=== PATIENT | female | born 1985 | race Caucasian/White ===

== ENCOUNTER 2020-02-22 17:33 | Emergency (ER) | payer OTHER, SELFPAY ==
[2020-02-22 17:48] VITALS: BP 111/74; PULSE 68; RESP 16; TEMP 37.5; O2SAT 100
--- NOTE | 2020-02-22 17:52 | ED.FEMALEGU ---
HPI - Female Genitourinary General Chief complaint: Urogenital-Female Stated complaint: Urogenital-female Time Seen by Provider: 02/22/20 17:52 Source: patient and RN notes reviewed History of Present Illness HPI Narrative: Patient is a 34-year-old female who presents the urgent care with complaints of a possible urinary tract infection. Patient states that she has a history of endometriosis and always has lower abdominal discomfort and bladder discomfort. However patient states that she started with some low back pain last night with intermittent nausea. Patient denies any fever. Has not used anything [id number] for her symptoms but has increased her water intake. Patient denies any hematuria, urinary urgency or frequency. Patient is supposed to be scheduling a hysterectomy with her [employer], which is been put off due to COVID. No other acute complaints. No acute distress noted. Patient read the plan of care. Related Data Home Medications Medication Instructions Recorded Confirmed levothyroxine [Euthyrox] 175 mcg PO DAILY 02/22/20 02/22/20 Allergies Allergy/AdvReac Type Severity Reaction Status Date / Time No Known Allergies Allergy Verified 02/22/20 18:03 Review of Systems Review of Systems: Narrative: CONSTITUTIONAL: Denies fever, chills, or sweats. EYES: Denies visual changes, redness, or discharge. ENT: Denies rhinorrhea, congestion, sore throat, or otalgia. CARDIOVASCULAR: Denies chest pain, palpitations, or edema. RESPIRATORY: Denies cough or dyspnea. GASTROINTESTINAL: Reports of suprapubic pressure and intermittent nausea GENITOURINARY: Denies dysuria or hematuria. SKIN: Denies rash or itching. MUSCULOSKELETAL: Reports of low back pain NEUROLOGIC: Denies headache, numbness, or weakness. All other systems reviewed are negative, except as documented in HPI. PMFSH Comments At the time of my signature, I reviewed and agree with the nursing past medical, surgical, social, and family history. There is no relevant family history pertinent to the patient complaint. Exam Narrative: Exam Narrative: GENERAL: This is a well-nourished, well-developed patient, in no apparent distress. HEAD: normocephalic, atraumatic. EYES: PERRL. Sclera clear/white. Vision is grossly intact. EARS: External ears normal NOSE: External nose normal with no obvious nasal discharge, nares without redness, no rhinorrhea. THROAT: Mucous membranes moist, posterior pharynx clear. NECK: Neck supple GASTROINTESTINAL: Abdomen soft, mild suprapubic tenderness, nondistended. SKIN: warm, intact with no suspicious lesions or rash, good texture and turgor. NEURO: awake, alert, and oriented to person, place and time. There were no obvious focal neurologic abnormalities. EXTREMITIES: No clubbing, cyanosis, or edema. BACK: Mild bilateral CVA tenderness Course Vital Signs Vital signs: Vital Signs Temperature 99.5 F 02/22/20 17:48 Pulse Rate 68 02/22/20 17:48 Respiratory Rate 16 02/22/20 17:48 Blood Pressure 111/74 02/22/20 17:48 Pulse Oximetry 100 02/22/20 17:48 Temperature 99.5 F 02/22/20 17:48 Pulse Rate 68 02/22/20 17:48 Respiratory Rate 16 02/22/20 17:48 Blood Pressure 111/74 02/22/20 17:48 Pulse Oximetry 100 02/22/20 17:48 Reviewed MDM - Female Genitourinary MDM Narrative Medical decision making narrative: Reviewed lab results with the patient. She is aware that urine analysis only shows a scant amount of possible bacteria. Therefore, we will culture the urine and forego antibiotic treatment at this time. If the culture shows a bacterial growth, we will treat appropriately. Patient is aware that the culture takes approximately 72 hours however she may call and check on the culture results. We only call for positives which needed treatment. In the meantime, educated the patient on kidney stones and advised her to go to the emergency room if the pain continues and is associated with any fever, nausea, vom
== END 2020-02-22 18:21 | disposition home or self-care (01) ==
PROVIDERS: Emergency Provider Nurse Practitioner Family
DX: R10.9 Unspecified abdominal pain (principal); E03.9 Hypothyroidism, unspecified
CPT/HCPCS: 81003; 87086; 99213; G0463